=== PATIENT | female | born 1955 | race Hispanic/Latino ===

== ENCOUNTER 2024-10-11 20:04 | Emergency (ER) | payer MEDICARE ==
[~2024-10-11] VITALS: Ht 152.4 cm; Wt 77.1 kg
[2024-10-11] MEDS: ACETAMINOPHEN 1000 MG/100 ML IV STA (20:51)
[2024-10-11] MEDS: SODIUM CHLORIDE 0.9% 1000ML 1,000 ML IV ONE ×2 (20:52→22:01)
[2024-10-11 20:55] LABS: BASOPHILS % 0.3 % (0.0-1.0); EOSINOPHILS % 0.4 % (0.0-6.0); HEMATOCRIT 48.8 % (34.2-44.1); HEMOGLOBIN 15.5 g/dL (12.0-16.0); LYMPHOCYTES # (AUTO) 1.5 (1.0-3.2); LYMPHOCYTES % 15.2 % (18.0-39.1); MEAN CORPUSCULAR HGB CONC 31.8 g/dL (31-35); MEAN CORPUSCULAR VOLUME 94.6 fL (81-99); MONOCYTES # (AUTO) 1.2 (0.2-0.8); MONOCYTES % 11.7 % (4.4-11.3); NEUTROPHILS # (AUTO) 7.1 (2.1-6.9); NEUTROPHILS % 71.4 % (38.7-80.0); PLATELET COUNT 202 x10e3/uL (140-360); RED BLOOD COUNT 5.16 x10e6/uL (3.6-5.1); RED CELL DISTRIBUTION WIDTH 14.2 % (11.7-14.4)
[2024-10-11 20:59] LABS: CLARITY,URINE CLEAR (CLEAR); COLOR,URINE YELLOW (YELLOW); PH,URINE 6 (5 - 7)
[2024-10-11 21:00] LABS: BILIRUBIN,URINE NEGATIVE (NEGATIVE); GLUCOSE, URINE NEGATIVE (NEGATIVE); KETONES,URINE NEGATIVE (NEGATIVE); LEUKOCYTE ESTERASE ,URINE NEGATIVE (NEGATIVE); NITRITE,URINE NEGATIVE (NEGATIVE); PROTEIN,URINE DIPSTICK 1+ (NEGATIVE); URINE UROBILINOGEN 0.2 mg/dL (0.2 - 1)
[2024-10-11 21:07] LABS: INR 0.94; PROTHROMBIN TIME 13.1 seconds (11.9-14.5)
[2024-10-11 21:11] LABS: ALBUMIN 4.1 g/dL (3.5-5.0); ALBUMIN/GLOBULIN RATIO 1.2 (0.8-2.0); ANION GAP 20.7 mmol/L (8-16); BILIRUBIN,TOTAL 0.4 mg/dL (0.2-1.2); CALCIUM 9.7 mg/dL (8.4-10.2); CREATININE, SERUM 1.32 mg/dL (0.57-1.11); POTASSIUM 3.7 mmol/L (3.5-5.1); TOTAL PROTEIN 7.6 g/dL (6.5-8.1)
[2024-10-11 21:16] LABS: PARTIAL THROMBOPLASTIN TIME 22.8 seconds (23.8-35.5)
[2024-10-11 21:17] LABS: BACTERIA,URINE RARE /HPF; CORONAVIRUS COVID-19 AG NEGATIVE (NEGATIVE); INFLUENZA A AG POSITIVE (NEGATIVE); INFLUENZA B AG NEGATIVE (NEGATIVE); RBC,URINE 0-5 /HPF (0-5)
[2024-10-11] MEDS: SODIUM CHLORIDE 0.9% 500ML 500 ML IV ONE (22:02)
[2024-10-12] MEDS: SODIUM CHLORIDE 0.9% 1000ML 1,000 ML IV ONE (00:07)
[2024-10-12] MEDS: IBUPROFEN 600 MG TAB PO STA (00:07)
[2024-10-12] MEDS: NOREPINEPHRINE 8 MG/D5W 250 ML 250 ML IV SCH (02:28)
[2024-10-12 03:04] VITALS: PULSE 80; RESP 23
[2024-10-12 03:10] VITALS: BP 118/49
[2024-10-12 03:11] VITALS: PULSE 76; RESP 18; TEMP 99.8; O2SAT 94
== END 2024-10-12 03:33 | disposition other institution (70) ==
LOC: ER 20:24
DX: R50.9 Fever, unspecified (principal); J10.00 Influenza due to other identified influenza virus with unspecified type of pneumonia; R09.02 Hypoxemia; R05.9 Cough, unspecified; E87.20 Acidosis, unspecified; K76.0 Fatty (change of) liver, not elsewhere classified; I51.7 Cardiomegaly; J47.9 Bronchiectasis, uncomplicated; I10 Essential (primary) hypertension; E11.9 Type 2 diabetes mellitus without complications; E03.9 Hypothyroidism, unspecified
CPT/HCPCS: 36415; 71045; 71250; 80053; 81001; 83605; 84484; 85025; 85610; 85730; 87040; 87071; 87086; 87205; 87428; 93005; 99285; J0131; J0456; J0696; J7030; J7040; J7050